=== PATIENT | male | born 1960 | race Caucasian/White ===

== ENCOUNTER 2018-10-12 12:54 | Emergency (ER) | payer OTHER, SELFPAY ==
--- NOTE | 2018-10-12 13:06 | ED.ABDPAIN ---
HPI - Abdominal Pain <Jaz Swan PA-C - Last Filed: 10/12/18 16:36> General Chief Complaint: Abdominal Pain Stated Complaint: abdominal pain Time Seen by Provider: 10/12/18 13:06 Source: patient Mode of arrival: ambulatory Limitations: no limitations History of Present Illness HPI narrative: This 57-year-old male comes in due to worsening left lower quadrant pain for 2 days. He states that he had low-grade pain on and off for about 2 weeks, but 2 days ago had increased cramping, pain, and fever up to 101 at home along with reduced appetite. He states that he went to urgent care on Sunday due to this as it feels like a flare up of his previous diverticulitis. He was given prescriptions for Bactrim and Flagyl, but did not start these until last night (has had 2 doses). He states that he has had mild nausea but no vomiting. He states he has not had fever, chills, or sweats in the last 2 days. He has not had any bowel changes except for perhaps smaller bowel movements. He comes in today due to pain be even worse, states it is worse with certain movements, better lying supine are on his right side. He denies any other new complaints such as chest pain, extremity swelling or dyspnea and states that this feels similar to previous diverticulitis episodes. He has had normal fluid intake. Related Data Allergies Allergy/AdvReac Type Severity Reaction Status Date / Time ciprofloxacin [From Cipro] Allergy Verified 10/12/18 13:09 levofloxacin [From Levaquin] Allergy Verified 10/12/18 13:09 Exam <Jaz Sawn PA-C - Last Filed: 10/12/18 16:36> Narrative Exam Narrative: GENERAL APPEARANCE: Patient sitting comfortably, in no distress. HEENT: PERRL, EOMI, no scleral icterus NECK: Supple LUNGS: Clear to auscultation bilaterally. HEART: Rate and rhythm regular, normal S1 and S2, no S3 or S4. ABDOMEN: Soft, nondistended, bowel sounds present x 4 quadrants, no masses palpable, no hepatosplenomegaly. Localized left lower quadrant tenderness with some rebound, no guarding. No CVAT EXTREMITIES: No edema, no calf tenderness DERMATOLOGIC: No jaundice or exanthem NEUROLOGIC: Alert and oriented with normal speech and coordination Initial Vital Signs Initial Vital Signs: Vital Signs Temperature 97.6 F 10/12/18 13:09 Pulse Rate 55 L 10/12/18 13:09 Respiratory Rate 15 10/12/18 13:09 Blood Pressure 125/74 10/12/18 13:09 Pulse Oximetry 100 10/12/18 13:09 <Juanita Simms DO - Last Filed: 10/12/18 17:27> Initial Vital Signs Initial Vital Signs: Vital Signs Temperature 97.6 F 10/12/18 13:09 Pulse Rate 55 L 10/12/18 13:09 Respiratory Rate 15 10/12/18 13:09 Blood Pressure 125/74 10/12/18 13:09 Pulse Oximetry 100 10/12/18 13:09 Course <Jaz Swan PA-C - Last Filed: 10/12/18 16:36> Orders Ordered: ED Orders 10/12/18 13:20 CT abdomen pelvis w con Stat 10/12/18 13:25 Complete Blood Count AUTO DIFF Stat Comprehensive Metabolic Panel Stat Lipase Stat Discontinued Medications Sodium Chloride (Normal Saline 0.9%) 1,000 mls @ 1,000 mls/hr IV BOLUS ONE Stop: 10/12/18 14:18 Last Admin: 10/12/18 13:43 Dose: 1,000 mls/hr Ketorolac Tromethamine (Toradol) 30 mg IV NOW ONE Stop: 10/12/18 13:22 Last Admin: 10/12/18 13:43 Dose: 30 mg Ondansetron HCl (Zofran) 4 mg IV NOW ONE Stop: 10/12/18 13:22 Last Admin: 10/12/18 13:43 Dose: 4 mg Vital Signs - 8 hr 10/12/18 13:09 10/12/18 15:36 Temperature 97.6 F Pulse Rate 55 L 54 L Respiratory Rate 15 13 Blood Pressure 125/74 Blood Pressure [Left Arm] 98/62 Pulse Oximetry 100 99 <Juanita Simms DO - Last Filed: 10/12/18 17:27> Orders Ordered: ED Orders 10/12/18 13:20 CT abdomen pelvis w con Stat 10/12/18 13:25 Complete Blood Count AUTO DIFF Stat Comprehensive Metabolic Panel Stat Lipase Stat Discontinued Medications Sodium Chloride (Normal Saline 0.9%) 1,000 mls @ 1,000 mls/hr IV BOLUS ONE Stop: 10/12/18 14:18 Last Admin: 10/12/18 13:43 Dose: 1,000 mls/hr Ketorolac Tromethamine (Toradol) 30 mg IV NOW ONE Stop: 10/12/18 13:22 Last Admin: 10/12/18 13:43 Dose: 30 mg Ondansetron HCl (Zofran) 4 mg IV NOW ONE Stop: 10/12/18 13:22 Last Admin: 10/12/18 13:43 Dose: 4 mg Vital Signs - 8 hr 10/12/18 13:09 10/12/18 15:36 Temperature 97.6 F Pulse Rate 55 L 54 L Respiratory Rate 15 13 Blood Pressure 125/74 Blood Pressure [Left Arm] 98/62 Pulse Oximetry 100 99 MDM - Abdominal Pain <Jaz Swan PA-C - Last Filed: 10/12/18 16:36> Lab Data Result diagrams: 10/12/18 13:25 10/12/18 13:25 Lab Results 10/12/18 10/12/18 Range/Units 13:25 13:25 WBC 5.5 (4.5-11.0) X10^3/uL RBC 4.70 (4.5-5.9) X10^6/uL Hgb 14.6 (13.5-17.5) g/dL Hct 42.1 (41-53) % MCV 89.5 (80-100) fL MCH 31.0 (26-34) PG MCHC 34.6 (30-36) % RDW 12.3 (11.6-14.8) % Plt Count 188 (150-400) X10^3/uL Neut % (Auto) 67.4 (50-75) % Lymph % (Auto) 21.0 L (25-40) % [place] % (Auto) 9.8 (3-14) % Eos % (Auto) 1.2 L (2-4) % Baso % (Auto) 0.6 (0-2) % Neut # (Auto) 3700 (0292-2897) /uL Sodium 142 (137-145) mmol/L Potassium 3.7 (3.4-5.1) mmol/L Chloride 101 (98-107) mmol/L Carbon Dioxide 29 (22-32) mmol/L BUN 14 (9-20) mg/dL Creatinine 0.80 (0.66-1.25) mg/dL Estimated GFR > 60.0 (>60) mL/min BUN/Creatinine Ratio 17.5 (6-22) Glucose 113 H (70-100) mg/dL Calcium 8.9 (8.4-10.2) mg/dL Total Bilirubin 0.6 (0.2-1.3) mg/dL AST 18 (17-59) IU/L ALT 25 (21-72) IU/L Alkaline Phosphatase 50 (38-126) U/L Total Protein 6.7 (6.3-8.2) g/dL Albumin 4.1 (3.5-5.0) g/dL Globulin 2.6 (1.7-4.1) g/dL Albumin/Globulin Ratio 1.6 (1.0-2.8) Lipase 51 (23-300) U/L Point of care testing: Urine Dip Bedside Urine Glucose Negative Bedside Urine Bilirubin - Negative Bedside Urine Ketone - Negative Urine Specific [place] 1.010 Bedside Urine Occult Blood - Negative Bedside Urine pH 8.0 Bedside Urine Protein - Negative Bedside Urine Urobilinogen - Negative Bedside Urine Nitrite - Negative Bedside Urine Leukocytes - Negative Esterase Imaging Data CT scan - abdomen: Radiologist's impression: [place] [address] CT Scan Report Signed Patient: Rene Leon RMR#: [id number] : 1Acct:[id number] Age/Sex: 57 / MDate of Service: 10/12/18 Loc: ED Accession Number: [id number] Procedure: CT abdomen pelvis w con Ordering Provider: Jaz Swan P.A-C PROCEDURE: CT ABDOMEN PELVIS W CON INDICATIONS: h/o diverticulitis, increased LLQ pain TECHNIQUE: After the administration of intravenous contrast, 5 mm thick sections acquired from the diaphragm to the symphysis. 5 mm coronal and sagittal reformats were acquired. For radiation dose reduction, the following was used: automated exposure control, adjustment of mA and/or kV according to patient size. COMPARISON: None. FINDINGS: Image quality: Excellent. ABDOMEN: Lung bases: Lung bases are clear. Heart size is normal. Tiny hiatal hernia. Solid organs: A 7 mm subcapsulary nodule in the anterior right hepatic lobe is probably a cyst. Liver is normal in size and enhancement. Gallbladder is normal. Biliary system is non dilated. Pancreas enhances normally. Spleen is normal in size and enhancement. No adrenal nodules. Kidneys demonstrate normal size and enhancement, without hydronephrosis. Peritoneum and bowel: Bowel loops demonstrate normal caliber. Appendix is normal. There are scattered colonic diverticula. There is colonic wall thickening and pericolonic stranding around the sigmoid colon compatible with acute diverticulitis. No free fluid or air. Nodes and vessels: No retroperitoneal or mesenteric adenopathy by size criteria. Aorta and inferior vena cava are normal in size. Miscellaneous: No ventral hernias. PELVIS: Genitourinary: Bladder wall thickness is normal. Miscellaneous: No inguinal adenopathy. Small fat containing left inguinal hernia is present. Bones: No suspicious bony lesions. No vertebral body compression fractures. Degenerative changes noted in lumbar spine. IMPRESSION: Sigmoid diverticulosis. There is thickening in sigmoid colon compatible with acute diverticulitis. Differential diagnoses include short segmental colitis and neoplastic process process. Recommend clinical correlation. Followup colonoscopy after adequate treatment of diverticulitis is suggested. Dictated by: Tressa Mcallister M.D. on 10/12/2018 at 15:31 Approved by: Tressa Mcallister M.D. on 10/12/2018 at 15:37 <Juanita Simms DO - Last Filed: 10/12/18 17:27> Lab Data Lab Results 10/12/18 10/12/18 Range/Units 13:25 13:25 WBC 5.5 (4.5-11.0) X10^3/uL RBC 4.70 (4.5-5.9) X10^6/uL Hgb 14.6 (13.5-17.5) g/dL Hct 42.1 (41-53) % MCV 89.5 (80-100) fL MCH 31.0 (26-34) PG MCHC 34.6 (30-36) % RDW 12.3 (11.6-14.8) % Plt Count 188 (150-400) X10^3/uL Neut % (Auto) 67.4 (50-75) % Lymph % (Auto) 21.0 L (25-40) % [place] % (Auto) 9.8 (3-14) % Eos % (Auto) 1.2 L (2-4) % Baso % (Auto) 0.6 (0-2) % Neut # (Auto) 3700 (3403-5900) /uL Sodium 142 (137-145) mmol/L Potassium 3.7 (3.4-5.1) mmol/L Chloride 101 (98-107) mmol/L Carbon Dioxide 29 (22-32) mmol/L BUN 14 (9-20) mg/dL Creatinine 0.80 (0.66-1.25) mg/dL Estimated GFR > 60.0 (>60) mL/min BUN/Creatinine Ratio 17.5 (6-22) Glucose 113 H (70-100) mg/dL Calcium 8.9 (8.4-10.2) mg/dL Total Bilirubin 0.6 (0.2-1.3) mg/dL AST 18 (17-59) IU/L ALT 25 (21-72) IU/L Alkaline Phosphatase 50 (38-126) U/L Total Protein 6.7 (6.3-8.2) g/dL Albumin 4.1 (3.5-5.0) g/dL Globulin 2.6 (1.7-4.1) g/dL Albumin/Globulin Ratio 1.6 (1.0-2.8) Lipase 51 (23-300) U/L Point of care testing: Urine Dip Bedside Urine Glucose Negative Bedside Urine Bilirubin - Negative Bedside Urine Ketone - Negative Urine Specific [place] 1.010 Bedside Urine Occult Blood - Negative Bedside Urine pH 8.0 Bedside Urine Protein - Negative Bedside Urine Urobilinogen - Negative Bedside Urine Nitrite - Negative Bedside Urine Leukocytes - Negative Esterase Discharge Plan Departure Patient Disposition: Home Clinical Impression: Diverticulitis Discharge Date/Time: 10/12/18 16:21 Interventions: ED Discharge Assessment Last Done: 10/12/18 16:19 Instructions: Diverticulitis Activity Restrictions/Additional Instructions: Please return as we talked about if you have acutely worsening symptoms such as high fever, increased pain, not being able to keep down your medicines. Please continue your antibiotics as they are appropriate for treatment of your diverticulitis, which was found on your CT scan today. No other new problem was found, but it will likely take a few days for the antibiotics to help. Please drink plenty of clear fluids, broth, etc and in a few days when you start to feel better, you can start adding back bland foods like white rice and applesauce as you have in the past. Take your Aleve, 2 tabs every 12 hours as needed for pain (this is prescription equivalent). Add stool softener if needed. Please call your PCP on Sunday and arrange for follow-up in a few days for recheck. Referrals: Seth Ceballos MD [Non-Staff] - <Juanita Simms DO - Last Filed: 10/12/18 17:27> Cosign ED Attending Cosignature Attestation: I was immediately available in the department for consultation. Documentation has been reviewed. I agree with assessment and plan.
[2018-10-12 13:09] VITALS: BP 125/74; PULSE 55; RESP 15; TEMP 36.4; O2SAT 100; BMI 21.5
--- NOTE | 2018-10-12 13:20 | DI.CT.S_ITS ---
PROCEDURE: CT ABDOMEN PELVIS W CON INDICATIONS: h/o diverticulitis, increased LLQ pain TECHNIQUE: After the administration of intravenous contrast, 5 mm thick sections acquired from the diaphragm to the symphysis. 5 mm coronal and sagittal reformats were acquired. For radiation dose reduction, the following was used: automated exposure control, adjustment of mA and/or kV according to patient size. COMPARISON: None. FINDINGS: Image quality: Excellent. ABDOMEN: Lung bases: Lung bases are clear. Heart size is normal. Tiny hiatal hernia. Solid organs: A 7 mm subcapsulary nodule in the anterior right hepatic lobe is probably a cyst. Liver is normal in size and enhancement. Gallbladder is normal. Biliary system is non dilated. Pancreas enhances normally. Spleen is normal in size and enhancement. No adrenal nodules. Kidneys demonstrate normal size and enhancement, without hydronephrosis. Peritoneum and bowel: Bowel loops demonstrate normal caliber. Appendix is normal. There are scattered colonic diverticula. There is colonic wall thickening and pericolonic stranding around the sigmoid colon compatible with acute diverticulitis. No free fluid or air. Nodes and vessels: No retroperitoneal or mesenteric adenopathy by size criteria. Aorta and inferior vena cava are normal in size. Miscellaneous: No ventral hernias. PELVIS: Genitourinary: Bladder wall thickness is normal. Miscellaneous: No inguinal adenopathy. Small fat containing left inguinal hernia is present. Bones: No suspicious bony lesions. No vertebral body compression fractures. Degenerative changes noted in lumbar spine. IMPRESSION: Sigmoid diverticulosis. There is thickening in sigmoid colon compatible with acute diverticulitis. Differential diagnoses include short segmental colitis and neoplastic process process. Recommend clinical correlation. Followup colonoscopy after adequate treatment of diverticulitis is suggested. Dictated by: Tressa Mcallister M.D. on 10/12/2018 at 15:31 Approved by: Tressa Mcallister M.D. on 10/12/2018 at 15:37
[2018-10-12 13:35] LABS: Add Manual Diff / Slide Review NO; Basophils Percent Auto 0.6 % (0-2); Eosinophils Percent Auto 1.2 % (2-4); Hematocrit 42.1 % (41-53); Hemoglobin 14.6 g/dL (13.5-17.5); Mean Corpuscular HGB Conc 34.6 % (30-36); Mean Corpuscular Volume 89.5 fL (80-100); Monocytes Percent Auto 9.8 % (3-14); Neutrophils Absolute Auto 3700 /uL (3000-5900); Neutrophils Percent Auto 67.4 % (50-75); Platelet Count 188 X10^3/uL (150-400); Red Cell Distribution Width 12.3 % (11.6-14.8); White Blood Cell Count 5.5 X10^3/uL (4.5-11.0)
[2018-10-12] MEDS: ONDANSETRON 4 MG/2 ML INJ IV (13:43)
[2018-10-12] MEDS: KETOROLAC 60 MG/2 ML VIAL 30 MG IV (13:43)
[2018-10-12] MEDS: SODIUM CHLORIDE 0.9% 1,000 ML 1000 ML IV (13:43)
[2018-10-12 13:48] LABS: Alanine Aminotransferase 25 IU/L (21-72); Albumin 4.1 g/dL (3.5-5.0); Albumin Globulin Ratio 1.6 (1.0-2.8); Alkaline Phosphatase 50 U/L (38-126); Aspartate Aminotransferase 18 IU/L (17-59); BUN Creatinine Ratio 17.5 (6-22); Bilirubin Total 0.6 mg/dL (0.2-1.3); Blood Urea Nitrogen 14 mg/dL (9-20); Calcium 8.9 mg/dL (8.4-10.2); Carbon Dioxide 29 mmol/L (22-32); Chloride 101 mmol/L (98-107); Estimated Glomerular Filt Rate > 60.0 mL/min (>60); Globulin 2.6 g/dL (1.7-4.1); Glucose 113 mg/dL (70-100); HEMOLYSIS 16 (0-50); Lipase 51 U/L (23-300); Potassium 3.7 mmol/L (3.4-5.1); Sodium 142 mmol/L (137-145); Total Protein 6.7 g/dL (6.3-8.2)
[2018-10-12 15:36] VITALS: BP 98/62; PULSE 54; RESP 13; O2SAT 99
--- NOTE | 2018-10-26 07:57 | PC.NURSE ---
pt dc at 1820, 1800 NS 1000cc infused .
== END 2018-10-12 16:21 | disposition home or self-care (01) ==
PROVIDERS: Emergency Provider Internal Medicine
DX: K57.92 Diverticulitis of intestine, part unspecified, without perforation or abscess without bleeding (principal)
CPT/HCPCS: 36591; 74177; 80053; 81003; 83690; 85025; 96361; 96374; 96375; 99283; 99285; J1885; J2405; Q9967

== ENCOUNTER 2025-03-23 19:03 | Emergency (ER) | payer OTHER, SELFPAY ==
[2025-03-23 19:15] VITALS: BP 135/79; PULSE 79; RESP 16; TEMP 37.6; O2SAT 99; BMI 20.7
--- NOTE | 2025-03-23 19:22 | EKG_ITS ---
[place] [id number] [place] [id number] Test Date: 2025-03-23 Pat Name: Rene Leon Department: [facility] Room: Gender: Male Side Splitter: : 1960 Requested By: Order Number: [id number] Reading MD: Adonis Barbosa Measurements Intervals [place] Rate: 74 P: 88 WA: 154 QRS: 66 QRSD: 88 T: 60 QT: 364 QTc: 404 Interpretive Statements Normal sinus rhythm Cannot rule out Anterior infarct , age undetermined Electronically Signed On 03-25-2025 17:39:31 PDT by Adonis Barbosa
[2025-03-23 20:00] LABS: Add Manual Diff / Slide Review NO; Basophils Absolute Auto 100 /uL (0-100); Basophils Percent Auto 0.3 % (0-2); Eosinophils Absolute Auto 200 /uL (0-450); Eosinophils Percent Auto 1.4 % (2-4); Lymphocytes Absolute Auto 900 /uL (1100-4500); Lymphocytes Percent Auto 6.2 % (25-40); Mean Corpuscular Hemoglobin 29.4 PG (26-34); Mean Corpuscular Volume 86.5 fL (80-100); Monocytes Absolute Auto 1400 /uL (0-900); Monocytes Percent Auto 9.5 % (3-14); Neutrophils Absolute Auto 12600 /uL (1500-7000); Neutrophils Percent Auto 82.6 % (50-75); Platelet Count 231 X10^3/uL (150-400); Red Blood Cell Count 5.09 X10^6/uL (4.5-5.9); Red Cell Distribution Width 12.8 % (11.6-14.8); White Blood Cell Count 15.2 X10^3/uL (4.5-11.0)
[2025-03-23 20:20] LABS: Alanine Aminotransferase 17 IU/L (<50); Albumin 4.2 g/dL (3.5-5.0); Albumin Globulin Ratio 1.4 (1.0-2.8); Alkaline Phosphatase 74 U/L (38-126); Aspartate Aminotransferase 22 IU/L (17-59); BUN Creatinine Ratio 20.5 (6-22); Bilirubin Total 0.9 mg/dL (0.2-1.3); Blood Urea Nitrogen 16 mg/dL (9-20); Carbon Dioxide 30 mmol/L (22-32); Chloride 99 mmol/L (98-107); Estimated Glomerular Filt Rate > 60 mL/min (>60); Glucose 116 mg/dL (70-99); HEMOLYSIS < 15 (0-50); Lipase 83 U/L (23-300); Potassium 3.9 mmol/L (3.4-5.1); Sodium 138 mmol/L (137-145); Total Protein 7.2 g/dL (6.3-8.2)
--- NOTE | 2025-03-23 20:31 | DI.CT.S_ITS ---
PROCEDURE: CT ABDOMEN PELVIS WO CON INDICATIONS: hx diverticulits, abd pain, n/v TECHNIQUE: Axial sections were acquired from the lung bases to the pubic symphysis. Coronal and sagittal reformats were performed. For radiation dose reduction, the following was used: automated exposure control, adjustment of mA and/or kV according to patient size. COMPARISON: None. FINDINGS: Image quality: Diagnostic. Lower Chest: No significant findings. URINARY: Right Kidney: No stones or hydronephrosis. Right Ureter: No hydroureter. Left Kidney: No stones or hydronephrosis. Left Ureter: No hydroureter. Bladder: Normal wall thickness. No stones. ABDOMEN: Liver: No contour-deforming solid mass. Gallbladder: No radiopaque gallstones or wall thickening. Biliary ducts: No biliary dilation. Pancreas: No ductal dilation. Spleen: Size is within normal limits. Adrenal Glands: No adrenal nodules. Stomach and Bowel: There is no bowel obstruction. No gastric or small bowel wall thickening. Appendix is visualized in right lower quadrant and is within normal limits. Significant wall thickening and pericolonic fat stranding involving proximal sigmoid colon/distal descending colon in left lower quadrant is seen best seen on series 4 image 42 and series 2, image 97. No extra luminal air to suggest perforation. No abscess collection. Sigmoid diverticulosis is seen. Peritoneum: No abnormal intraperitoneal fluid. No free air. Ventral Wall: No hernia. Abdominal Nodes: No enlarged retroperitoneal or mesenteric lymph nodes. Vessels: Aorta and inferior vena cava are normal in size. PELVIS: Pelvic Organs: Unremarkable. Pelvic Nodes: Unremarkable. Miscellaneous: No inguinal hernias are seen. Bones: No aggressive appearing bony lesions. No acute vertebral body compression fractures. IMPRESSION: 1. Finding is consistent with acute diverticulitis involving distal descending colon/proximal sigmoid colon in left lower quadrant. Significant colonic wall thickening in left lower quadrant. No abscess collection. No signs of perforation. 2. Normal appendix. No bowel obstruction. No free fluid or free air. 3. No obstructing renal stones or hydronephrosis. Dictated by: Eddy Connolly M.D. on 03/23/2025 at 21:14 Approved by: Eddy Connolly M.D. on 03/23/2025 at 21:16
[2025-03-23 20:37] LABS: Ictotest Urine Negative (Negative)
[2025-03-23 20:43] LABS: Bacteria Urine None Seen; RBC Urine 1-5/HPF (0-5/HPF); Squamous Epithelial Cell Urine 0-1 /HPF (0-5/HPF); Urine Volume 10mL (spun); WBC Urine None Seen (0-5/HPF)
[2025-03-23 20:44] LABS: Mucus Urine 1+ (Negative)
[2025-03-23 23:37] VITALS: PULSE 68; O2SAT 98
--- NOTE | 2025-03-23 23:37 | ED_ITS ---
HPI - Abdominal Pain General Chief Complaint: Abdominal Pain Stated Complaint: abd px, diarrhea, vomiting Time Seen by Provider: 03/23/25 23:34 Source: patient Mode of arrival: Ambulatory History of Present Illness HPI narrative: 64-year-old male with history of previous diverticulitis, prior colonoscopy, no known colon cancers, no blood thinner medications, allergies to quinolone antibiotics, complains of 2 days duration of increasing left-sided abdominal pain. No nausea or vomiting. No fevers. Some loose stools without black or red color. He has not tried any pain medications. No painful urination or frequency of urination. No recent cough shortness of breath. Denies chest discomfort. Related Data Previous Rx's Medication Instructions Recorded amoxicillin 875 mg-potassium 1 tab PO BID #20 tabs 03/24/25 clavulanate 125 mg tablet hydrocodone 5 mg-acetaminophen 325 1 tab PO Q6H PRN pain #14 tabs 03/24/25 mg tablet Allergies Allergy/AdvReac Type Severity Reaction Status Date / Time ciprofloxacin [From Cipro] Allergy Verified 10/12/18 13:09 levofloxacin [From Levaquin] Allergy Verified 10/12/18 13:09 Patient History Medical History (Updated 03/24/25 @ 00:06 by Don Friedman MD) History of diverticulitis of colon History of basal cell carcinoma Surgical History (Updated 10/12/18 @ 13:37 by Jaz Swan PA-C) S/P hernia repair H/O basal cell carcinoma excision Social History (Updated 10/12/18 @ 13:37 by Jaz Swan PA-C) Smoking Status: Never smoker second hand exposure: Yes additional social history: ETOH 1/day Smoking Status: Never smoker alcohol intake frequency: 0-2 drinks per day Exam Narrative Exam Narrative: GENERAL: Well-developed patient, in mild distress. HEAD: Atraumatic. Normocephalic. EYES: Pupils equal round and reactive. Extraocular motions intact. No scleral icterus. No injection or drainage. ENT: Nose without bleeding, purulent drainage. Throat without erythema, tonsillar hypertrophy or exudate. Airway patent. NECK: Trachea midline. Non tender CARDIOVASCULAR: Regular rate and rhythm without murmurs, gallops, or rubs. RESPIRATORY: Clear to auscultation. Breath sounds equal bilaterally. No wheezes, rales, or rhonchi. GASTROINTESTINAL: Abdomen left lower quadrant tenderness without guarding or rebound. Nonrigid, active bowel tones without tinkels or rushes. EXTREMITIES: No edema or joint tenderness. BACK: Nontender without deformity or crepitance. No flank tenderness. NEURO: AOx3. Motor functions grossly nonfocal SKIN: No rash or erythema of visible areas Initial Vital Signs Initial Vital Signs: Vital Signs Temperature 99.6 F 03/23/25 19:15 Pulse Rate 79 03/23/25 19:15 Respiratory Rate 16 03/23/25 19:15 Blood Pressure 135/79 03/23/25 19:15 Pulse Oximetry 99 03/23/25 19:15 Oxygen Delivery Method Room Air 03/23/25 19:15 Course Orders Ordered: Discontinued Medications Hydrocodone Bitart/Acetaminophen (Hydrocodone/Acet 5/325 Prepack) 1 bottle MISC DIRECTED ONE Stop: 03/24/25 00:02 Last Admin: 03/24/25 01:14 Dose: 1 bottle Documented By: TRUMAN Piperacillin Sod/Tazobactam (Sod 4.5 gm/ Sodium Chloride) 100 mls @ 200 mls/hr IV NOW ONE Stop: 03/23/25 23:37 Last Infusion: 03/24/25 01:40 Dose: Infused Documented By: Admin: 03/24/25 01:00 Dose: 200 mls/hr Documented By: TRUMAN Lactated Ringer's (Lactated Ringers) 1,000 mls @ 1,000 mls/hr IV BOLUS ONE Stop: 03/24/25 00:35 Last Infusion: 03/24/25 01:13 Dose: Infused Documented By: Admin: 03/24/25 00:11 Dose: 1,000 mls/hr Documented By: TRUMAN Ondansetron HCl (Ondansetron 4 Mg/2 Ml Inj) 4 mg IV NOW PRN PRN Reason: Nausea And Vomiting Ondansetron HCl (Ondansetron 4 Mg Odt) 4 mg PO NOW PRN PRN Reason: Nausea And Vomiting Vital Signs Vital signs: Vital Signs - 8 hr 03/23/25 19:15 Temperature 99.6 F Pulse Rate 79 Respiratory Rate 16 Blood Pressure 135/79 Pulse Oximetry 99 Oxygen Delivery Method Room Air MDM - Abdominal Pain Lab Data Attestation: I reviewed the patient's lab results. Lab results narrative: White blood cell count 03329, hemoglobin 15, platelets 231,000. Basic metabolic panel unremarkable. Liver functions unremarkable. Urinalysis negative. Lipase normal. 03/23/25 19:51 03/23/25 19:51 Labs: Lab Results 03/23/25 03/23/25 Range/Units 19:43 19:51 WBC 15.2 H (4.5-11.0) X10^3/uL RBC 5.09 (4.5-5.9) X10^6/uL Hgb 15.0 (13.5-17.5) g/dL Hct 44.0 (41-53) % MCV 86.5 (80-100) fL MCH 29.4 (26-34) PG MCHC 34.0 (30-36) % RDW 12.8 (11.6-14.8) % Plt Count 231 (150-400) X10^3/uL Neut % (Auto) 82.6 H (50-75) % Lymph % (Auto) 6.2 L (25-40) % [place] % (Auto) 9.5 (3-14) % Eos % (Auto) 1.4 L (2-4) % Baso % (Auto) 0.3 (0-2) % Neut # (Auto) 98863 H (8073-2933) /uL Lymph # (Auto) 900 L (8575-7946) /uL Johnston # (Auto) 1400 H (0-900) /uL Eos # (Auto) 200 (0-450) /uL Baso # (Auto) 100 (0-100) /uL Sodium 138 (137-145) mmol/L Potassium 3.9 (3.4-5.1) mmol/L Chloride 99 (98-107) mmol/L Carbon Dioxide 30 (22-32) mmol/L BUN 16 (9-20) mg/dL Creatinine 0.78 (0.66-1.25) mg/dL Estimated GFR > 60 (>60) mL/min BUN/Creatinine Ratio 20.5 (6-22) Glucose 116 H (70-99) mg/dL Calcium 9.0 (8.4-10.2) mg/dL Total Bilirubin 0.9 (0.2-1.3) mg/dL AST 22 (17-59) IU/L ALT 17 (<50) IU/L Alkaline Phosphatase 74 (38-126) U/L Total Protein 7.2 (6.3-8.2) g/dL Albumin 4.2 (3.5-5.0) g/dL Globulin 3.0 (1.7-4.1) g/dL Albumin/Globulin Ratio 1.4 (1.0-2.8) Lipase 83 (23-300) U/L Ur Bilirubin Confirm Negative (Negative) Urine RBC 1-5/hpf (0-5/HPF) Urine WBC None seen (0-5/HPF) Ur Squamous Epith Cells 0-1 /hpf (0-5/HPF) Urine Bacteria None seen (None) Urine Mucus 1+ H (Negative) Ur Culture Indicated? Vol Urine Centrifuged 10ml (spun) Point of care testing: Urine Dip Bedside Urine Glucose Negative Bedside Urine Bilirubin + 1 Bedside Urine Ketone +++ 80 Urine Specific [place] 1.030 Bedside Urine Occult Blood +/- Bedside Urine pH 6.0 Bedside Urine Protein +/- 15 Bedside Urine Urobilinogen - Negative Bedside Urine Nitrite - Negative Bedside Urine Leukocytes - Negative Esterase Imaging Data CT scan - abdomen/pelvis: Radiologist's Impression: [place] [address] CT Scan Report Signed Patient: Rene Leon MR#: [id number] : 1960 Acct:[id number] Age/Sex: 64 / M Date of Service: 03/23/25 Loc: ED Accession Number: [id number] Procedure: CT abdomen pelvis wo con Ordering Provider: Don Friedman MD PROCEDURE: CT ABDOMEN PELVIS WO CON INDICATIONS: hx diverticulits, abd pain, n/v TECHNIQUE: Axial sections were acquired from the lung bases to the pubic symphysis. Coronal and sagittal reformats were performed. For radiation dose reduction, the following was used: automated exposure control, adjustment of mA and/or kV according to patient size. COMPARISON: None. FINDINGS: Image quality: Diagnostic. Lower Chest: No significant findings. URINARY: Right Kidney: No stones or hydronephrosis. Right Ureter: No hydroureter. Left Kidney: No stones or hydronephrosis. Left Ureter: No hydroureter. Bladder: Normal wall thickness. No stones. ABDOMEN: Liver: No contour-deforming solid mass. Gallbladder: No radiopaque gallstones or wall thickening. Biliary ducts: No biliary dilation. Pancreas: No ductal dilation. Spleen: Size is within normal limits. Adrenal Glands: No adrenal nodules. Stomach and Bowel: There is no bowel obstruction. No gastric or small bowel wall thickening. Appendix is visualized in right lower quadrant and is within normal limits. Significant wall thickening and pericolonic fat stranding involving proximal sigmoid colon/distal descending colon in left lower quadrant is seen best seen on series 4 image 42 and series 2, image 97. No extra luminal air to suggest perforation. No abscess collection. Sigmoid diverticulosis is seen. Peritoneum: No abnormal intraperitoneal fluid. No free air. Ventral Wall: No hernia. Abdominal Nodes: No enlarged retroperitoneal or mesenteric lymph nodes. Vessels: Aorta and inferior vena cava are normal in size. PELVIS: Pelvic Organs: Unremarkable. Pelvic Nodes: Unremarkable. Miscellaneous: No inguinal hernias are seen. Bones: No aggressive appearing bony lesions. No acute vertebral body compression fractures. IMPRESSION: 1. Finding is consistent with acute diverticulitis involving distal descending colon/proximal sigmoid colon in left lower quadrant. Significant colonic wall thickening in left lower quadrant. No abscess collection. No signs of perforation. 2. Normal appendix. No bowel obstruction. No free fluid or free air. 3. No obstructing renal stones or hydronephrosis. Dictated by: Eddy Connolly M.D. on 03/23/2025 at 21:14 Approved by: Eddy Connolly M.D. on 03/23/2025 at 21:16 ECG Data Attestation: I personally reviewed and interpreted this ECG as follows: Interpretation: Normal sinus rhythm with rate of 74, no obvious ST segment elevation or depression changes. NM 154, QRS 88, QTC 404. [facility] Narrative Medical decision making narrative: 64-year-old male with history of diverticulitis has atraumatic left-sided abdominal pain for the last 2 days. Tenderness left lower quadrant on examination with no guarding or rebound. Afebrile, sirs screen negative. White blood cell count elevated. Liver functions and lipase normal. Urinalysis negative. GFR favorable. CT abdomen and pelvis ordered. Patient has not had pain medication, declines pain medications when offered. CT abdomen and pelvis shows descending colon diverticulitis changes, no mention of any perforation or obstructive or abscess changes. See radiology report. History of quinolone antibiotic allergies. Has had penicillins before. IV Zosyn antibiotic ordered. Patient would like to try treatment as an outpatient for now, we will send prescription for Augmentin course of antibiotic to his pharmacy. He agrees with pain medication to use if needed as an outpatient, home pack of hydrocodone/acetaminophen, prescription also sent to his pharmacy. Recheck advised with his regular doctor in the next 2-3 days. Return precautions discussed. Home with family. Discharge Plan Departure Patient Disposition: Home Clinical Impression: Diverticulitis large intestine Activity Restrictions/Additional Instructions: History of prior diverticulitis. Left lower quadrant abdominal pain without known trauma for the last couple of days. Tenderness to the right left lower quadrant of the abdomen on examination. Vital signs unremarkable. CT abdominal imaging tonight showed diverticulitis inflammation and left lower quadrant, consistent with the area of your symptoms, without complications of bowel obstruction or perforation or abscess formation at this time. History of allergies to ciprofloxacin and levofloxacin noted. You declined pain medications when offered while in the emergency department, though were willing to have pain medications to use as an outpatient if needed. Prescription sent to your pharmacy for some pain control medications to use if needed. IV Zosyn penicillin family antibiotic initiated. We will give course of antibiotic Augmentin oral antibiotics for the next 10 days, prescription sent to your pharmacy. Take antibiotics as directed. Suggested recheck with your regular doctor in the next 2-3 days if possible. Recheck earlier here in this emergency department or nearest emergency department for any change worsening symptoms or any concerns prior. Prescriptions: New amoxicillin-pot clavulanate 875-125 mg tablet 1 tab PO BID Qty: 20 0RF hydrocodone-acetaminophen 5-325 mg tablet 1 tab PO Q6H PRN (Reason: pain) Qty: 14 0RF Referrals: Miscellaneous,DoctorMD [Primary Care Provider] - Stand Alone Forms: Patient Portal/API/Survey
[2025-03-23 23:39] VITALS: BP 129/71; PULSE 63; O2SAT 99
[2025-03-24] VITALS: BP 127/74; PULSE 67; O2SAT 97
[2025-03-24] MEDS: LACTATED RINGERS 1,000 ML 1000 ML IV (00:11)
[2025-03-24 00:30] VITALS: BP 132/78; PULSE 67; O2SAT 98
[2025-03-24 01:00] VITALS: O2SAT 98
[2025-03-24] MEDS: PIPERACILLIN/TAZO 4.5 GM in SODIUM CHLORIDE 0.9% 100 ML IV (01:00)
[2025-03-24 01:05] VITALS: BP 144/81; PULSE 62; O2SAT 87
[2025-03-24] MEDS: HYDROCODONE/ACET 5/325 PREPACK 1 BOTTLE MISC (01:14)
[2025-03-24 01:30] VITALS: BP 125/71; PULSE 69; O2SAT 98
== END 2025-03-24 01:45 | disposition home or self-care (01) ==
PROVIDERS: Emergency Provider Emergency Medicine
DX: K57.32 Diverticulitis of large intestine without perforation or abscess without bleeding (principal)
CPT/HCPCS: 74176; 80053; 81003; 81015; 83690; 85025; 87086; 93005; 96365; 99283; 99284; J2543